=== PATIENT | male | born 1985 | race African-American/Black ===

== ENCOUNTER 2016-06-21 18:10 | Emergency (ER) | payer SELFPAY ==
[~2016-06-21] VITALS: Ht 175.3 cm; Wt 60.0 kg
[~2016-06-21 18:10] MED LIST: BACT800T5 PO; CEPH500C3 PO
[2016-06-21 18:11] VITALS: BP 120/78; PULSE 92; RESP 20; TEMP 99.9; O2SAT 99
[2016-06-21 18:56] VITALS: BP 119/63; PULSE 91; RESP 16; O2SAT 99
--- NOTE | 2016-06-21 19:12 | PD ---
HPI Chief Complaint: Respiratory Symptoms Time Seen by Provider: 19:12 Travel History International Travel<30 days: No Contact w/Intl Traveler<30days: No Traveled to known affect area: No History of Present Illness HPI 31-year-old male presents to the emergency department for evaluation of cough and cold symptoms. Patient states that yesterday he developed a dry nonproductive cough. States that today the cough worsened and he developed a fever, sore throat, ear pain, headache, nausea and some chest pressure with coughing. He states that he took DayQuil with minimal improvement of symptoms. States that his roommate has had similar symptoms recently as well. He denies any medical conditions. States that he smokes one pack per day of cigarettes for the past 13 years. Denies any history of lung disease or asthma. No recent travel. Denies difficulty breathing, vomiting, diarrhea, constipation, dysuria. No other complaints. 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 SKIN: Warm and dry. HEAD: Normocephalic and atraumatic. EYES: No injection, drainage, or hyphema noted. PERRLA. EOMI. ENT: No nasal drainage noted. Oropharynx is clear and the TMs are normal with good landmarks. NECK: Supple and the trachea is midline. CARDIOVASCULAR: Regular rate and rhythm. RESPIRATORY: Breath sounds are equal bilaterally with no accessory muscle use, wheezing, rhonchi, or crackles. GASTROINTESTINAL: Abdomen is soft, non-tender, and nondistended. MUSCULOSKELETAL: No obvious deformities, swelling, cyanosis, or ecchymosis is present throughout the upper and lower extremities. Patient has full range of motion without any signs of neurovascular compromise. NEUROLOGICAL: Awake, alert, and oriented. Normal speech and gait. Cranial nerves are grossly intact. Data Data Last Documented VS Vital Signs Date Time Temp Pulse Resp B/P Pulse Ox O2 Delivery O2 Flow Rate FiO2 06/21/16 19:11 115 17 97 Room Air 06/21/16 18:56 119/63 06/21/16 18:11 99.9 Orders Electrocardiogram (06/21/16 19:10) Chest, Pa & Lat (06/21/16 19:10) Acetaminophen (Tylenol) (06/21/16 19:15) Influenzae A/B Antigen (06/21/16 19:10) MDM Medical Decision Making Medical Screen Exam Complete: Yes Emergency Medical Condition: Yes Differential Diagnosis Influenza versus viral syndrome versus URI versus pneumonia Narrative Course 31-year-old male presents to the emergency department for evaluation of fever with cough and cold symptoms. Patient has a fever of 99.9F orally. Otherwise vital signs are within normal limits. Physical examination is unremarkable. Patient appears well overall. Chest x-ray is negative. EKG shows sinus rhythm with no acute ST elevations or depressions. Influenza swab is negative. Patient's joint stable without complaint while here in the emergency department. He has a viral syndrome. Discussed supportive care and when to return to the emergency department. Patient is stable for discharge. Diagnosis Primary Impression: Viral syndrome Patient Instructions: General Instructions, Viral Syndrome (ED) Departure Forms: Tests/Procedures, Work Release Enter return to work date: Jun 23, 2016 Additional Instructions: Rest. Drink plenty of fluids. Alternate Tylenol and ibuprofen for fever. Follow-up with your Primary Care Physician as needed. Return to the ED for any acute worsening of symptoms. Med/Other Pt SpecificInfo: No Change to Meds Scripts No Active Prescriptions or Reported Meds Disposition: 01 DISCHARGE HOME Condition: Stable Monique Yip Jun 21, 2016 19:12
[2016-06-21] MEDS ORDERED: ACETAMINOPHEN 500 MG CPLT PO ONE (19:15)
--- NOTE | 2016-06-21 19:42 | RADRPT ---
EXAM DATE/TIME: 06/21/2016 19:36 [facility] COMPARISON: No previous studies available for comparison. INDICATIONS : Fever. Flu symptoms. MEDICAL HISTORY : None. SURGICAL HISTORY : None. ENCOUNTER: Initial ACUITY: 2 days PAIN SCORE: 7/10 LOCATION: Bilateral chest FINDINGS: PA and lateral views of the chest demonstrate the lungs to be symmetrically aerated without evidence of mass, infiltrate or effusion. The cardiomediastinal contours are unremarkable. Osseous structure s are intact. CONCLUSION: No acute disease. There is no evidence of pneumonia. Keshav Rocha MD on June 21, 2016 at 19:41 Board Certified Radiologist. This report was verified electronically.
--- NOTE | 2016-06-21 21:48 | EKG ---
Date Performed: 06/21/2016 Time Performed: 19:17:03 PTAGE: 31 years EKG: Sinus rhythm POSSIBLE LEFT ATRIAL ENLARGEMENT POSSIBLE RIGHT VENTRICULAR CONDUCTION DELAY NONSPECIFIC T-WAVE ABNO RMALITY BORDERLINE ECG NO PREVIOUS TRACING DOCTOR: Abhijit Richard Interpretating Date/Time 06/21/2016 21:47:49
== END 2016-06-21 22:20 | disposition home or self-care (01) ==
LOC: NEPC 18:10
DX: B34.9 Viral infection, unspecified (principal)
CPT/HCPCS: 71020; 87804; 93005

== ENCOUNTER 2017-08-22 00:16 | Emergency (ER) | payer SELFPAY ==
[2017-08-22 00:37] VITALS: BP 122/82; PULSE 74; RESP 18; TEMP 98.1; O2SAT 100
[2017-08-22] MEDS ORDERED: ACETAMINOPHEN/HYDROcodone 325 MG/5 MG TAB PO ONE (02:45)
[2017-08-22] MEDS ORDERED: ACETAMIN 325 MG/BUTALBITAL 50 MG/CAFFEINE 40 MG TAB PO ONE (02:45)
--- NOTE | 2017-08-22 03:48 | RADRPT ---
EXAM DATE/TIME: 08/22/2017 02:59 [facility] COMPARISON: No previous studies available for comparison. INDICATIONS : Cephalgia, dizziness. RADIATION DOSE: 56.35 CTDIvol (mGy) MEDICAL HISTORY : None SURGICAL HISTORY : None. ENCOUNTER: Initial ACUITY: 1 day PAIN SCALE: 8/10 LOCATION: cranial TECHNIQUE: Multiple contiguous axial images were obtained of the head. Using automated exposure control and adj ustment of the mA and/or kV according to patient size, radiation dose was kept as low as reasonably a chievable to obtain optimal diagnostic quality images. DICOM format image data is available electro nically for review and comparison. FINDINGS: CEREBRUM: The ventricles are normal for age. No evidence of midline shift, mass lesion, hemorrhage or acute in farction. No extra-axial fluid collections are seen. POSTERIOR FOSSA: The cerebellum and brainstem are intact. The 4th ventricle is midline. The cerebellopontine angle i s unremarkable. EXTRACRANIAL: The visualized portion of the orbits is intact. SKULL: The calvaria is intact. No evidence of skull fracture. CONCLUSION: Normal examination. Eduardo Villegas Jr., MD on August 22, 2017 at 3:46 Board Certified Radiologist. This report was verified electronically.
--- NOTE | 2017-08-22 03:51 | PD ---
HPI Chief Complaint: General Weakness Time Seen by Provider: 00:42 Travel History International Travel<30 days: No Contact w/Intl Traveler<30days: No Traveled to known affect area: No History of Present Illness HPI Patient is a 32-year-old male who is coming in saying at work tonight sudden onset of right sided mosque pain and also posterior orbital pain. It radiates down the lateral side of his right head. Denies any neck pain denies nausea he had some facial tingling that lasted briefly and now in the ER he continues with the right temporal-like pain. He did not take any medications alleviate the symptoms he has a history of migraine-like headaches no family history of aneurysms or brain cancer he is only 32 years old and the pain is localized to the right mosque has not seen another doctor for this it happened just prior to arrival fact that it continued it was stronger and that he had facial pain and tingling made him worry he said "I thought I was having a stroke." " PFSH Past Medical History Diminished Hearing: No Genitourinary: Yes (genital herpes) Kidney Stones: Yes Past Surgical History Other Surgery: Yes (LEFT UNDESCENDED TESTICLES) Social History Alcohol Use: Yes (OCCASSIONALLY) Tobacco Use: Yes (1/2 PPD) Substance Use: No Allergies-Medications (Allergen,Severity, Reaction): Coded Allergies: *MDRO Multi-Drug Resistant Organism (Verified Adverse Reaction, Unknown, ) 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 HEAD: Atraumatic. Normocephalic. pt has tenderness to his right mosque area reproducible EYES: Pupils equal and round. No scleral icterus. No injection or drainage. ENT: No nasal bleeding or discharge. Mucous membranes pink and moist. NECK: Trachea midline. No JVD. CARDIOVASCULAR: Regular rate and rhythm. RESPIRATORY: No accessory muscle use. Clear to auscultation. Breath sounds equal bilaterally. GASTROINTESTINAL: Abdomen soft, non-tender, nondistended. Hepatic and splenic margins not palpable. MUSCULOSKELETAL: Extremities without clubbing, cyanosis, or edema. No obvious deformities. NEUROLOGICAL: Awake and alert. No obvious cranial nerve deficits. Motor grossly within normal limits. Five out of 5 muscle strength in the arms and legs. Normal speech. PSYCHIATRIC: Appropriate mood and affect; insight and judgment normal. Data Data Last Documented VS Vital Signs Date Time Temp Pulse Resp B/P (MAP) Pulse Ox O2 Delivery O2 Flow Rate FiO2 08/22/17 00:37 98.1 74 18 122/82 (95) [address] Brain W/O Iv Contrast(Rout) (08/22/17 ) Ytfi-Psclr-Qlfx 325-50-40 Mg (Fioricet 3 (08/22/17 02:45) Acetamin-Hydrocod 325-5 Mg ([place] 5-325 (08/22/17 02:45) Ed Discharge Order (08/22/17 04:16) MDM Medical Decision Making Medical Screen Exam Complete: Yes Emergency Medical Condition: Yes Differential Diagnosis stress headache HTN headache , sinus headace vs tumor cerebral vs CVA or SAH other Narrative Course I discuss radiation diagnosis with CT or just treating sinus and stress headache to see if it improves , PT " I would feel much better if I had a CT " pt has no fam history of tumors nor SAH or anuerysm bleed, he has history of migraines but this feels so different> Diagnosis Primary Impression: Headache Qualified Codes: R51 - Headache Patient Instructions: Acute Headache (ED), General Instructions Scripts Hvvzockmrh-Chginuutbkdqg-Isapzevm (Fioricet) 50-300-40 Mg Cap 1 CAP PO Q4H Y for HEADACHE, #10 CAP 0 Refills Prov: Fracisco Barone MD 08/22/17 Fracisco Barone MD August 22, 2017 03:51
[2017-08-22] MEDS ORDERED: BUTA1CAP PO (04:19)
== END 2017-08-22 04:57 | disposition home or self-care (01) ==
LOC: NEPE 00:16
DX: R51 Headache (principal); F17.200 Nicotine dependence, unspecified, uncomplicated
CPT/HCPCS: 70450